=== PATIENT | female | born 1990 | race Caucasian/White ===

== ENCOUNTER 2023-03-10 20:00 | Emergency (ER) | payer OTHER ==
[2023-03-10 20:09] VITALS: BMI 23.3
[2023-03-10] MEDS ORDERED: SODIUM CHLORIDE 0.9% 500 ML INFUS.BAG IV ONE (20:18)
[2023-03-10] MEDS ORDERED: ONDANSETRON 4 MG/2 ML VIAL IVPUSH ONE (20:19)
[2023-03-10] MEDS ORDERED: FAMOTIDINE 20 MG/50 ML IVPB 20 MG/50 ML MG IVPB ONE ×2 (20:19→20:45)
[2023-03-10] MEDS ORDERED: ACETAMINOPHEN 1000 MG/100 ML BAG IVPB ONE (20:19)
[2023-03-10] MEDS ORDERED: ACETAMINOPHEN INJECTION 100 ML IVPB ONE (20:45)
[2023-03-10] MEDS ORDERED: ONDANSETRON 4 MG/2 ML VIAL ONE (20:45)
[2023-03-10 20:57] LABS: BASO % 0.2 % (0-2.0); EOS % 0.6 % (0-4.5); HEMATOCRIT 39.7 % (32.4-45.2); HEMOGLOBIN 13.7 GM/dL (10.7-15.3); LYMPH % 11.6 % (8-40); MCH 29.5 pg (25.7-33.7); MCHC 34.5 g/dl (32.0-36.0); MEAN CELL VOLUME 85.6 fl (80-96); MEAN PLT VOLUME 8.4 fl (7.5-11.1); MONO % 5.7 % (3.8-10.2); NEUT % 81.9 % (42.8-82.8); PLATELET COUNT 225 10^3/uL (134-434); RBC 4.64 M/mm3 (3.60-5.2); RDW 13.2 % (11.6-15.6)
[2023-03-10 21:10] LABS: POTASSIUM 3.2 mmol/L (3.5-5.1)
[2023-03-10 21:13] LABS: CALCIUM 8.6 mg/dL (8.5-10.1)
[2023-03-10 21:14] LABS: ALBUMIN 3.7 g/dl (3.4-5.0); BLOOD UREA NITROGEN 7.8 mg/dL (7-18)
[2023-03-10 21:17] LABS: CREATININE 0.5 mg/dL (0.55-1.3)
[2023-03-10 21:18] LABS: BILIRUBIN,TOTAL 0.8 mg/dL (0.2-1); TOT PROT 7.3 g/dl (6.4-8.2)
[2023-03-10] MEDS ORDERED: LOPERAMIDE HCL 1 MG/5 ML UNIT DOSE CUP PO ONE (21:19)
[2023-03-10] MEDS ORDERED: POTASSIUM CHLORIDE ORAL LIQUID 20 MEQ/15 ML PO ONE (21:19)
[2023-03-10] MEDS ORDERED: LOPERAMIDE HCL 2 MG CAPSULE ONE (21:31)
[2023-03-10] MEDS ORDERED: LOPERAMIDE HCL 2 MG CAPSULE PO ONE (21:31)
[2023-03-10] MEDS ORDERED: POTASSIUM CHLORIDE ORAL LIQUID 20 MEQ/15 ML ONE (21:32)
[2023-03-10 21:53] VITALS: BP 114/70; PULSE 70; RESP 16; TEMP 97.6
== END 2023-03-10 22:21 | disposition home or self-care (01) ==
LOC: JER 20:00
PROC: 3E033GC Introduction of Other Therapeutic Substance into Peripheral Vein, Percutaneous Approach (ICD-10-PCS; principal; 2023-03-10)
PROC: 3E033NZ Introduction of Analgesics, Hypnotics, Sedatives into Peripheral Vein, Percutaneous Approach (ICD-10-PCS; 2023-03-10)
PROC: 3E033GC Introduction of Other Therapeutic Substance into Peripheral Vein, Percutaneous Approach (ICD-10-PCS; 2023-03-10)
DX: R19.7 Diarrhea, unspecified (principal); R10.84 Generalized abdominal pain; R10.30 Lower abdominal pain, unspecified; R11.2 Nausea with vomiting, unspecified; Z20.822 Contact with and (suspected) exposure to COVID-19
CPT/HCPCS: 0241U-QW; 36415; 80053; 83690; 84703; 85025; 99284-25

== ENCOUNTER 2023-03-20 21:49 | Emergency (ER) | payer OTHER ==
[2023-03-20 21:59] VITALS: BP 109/70; PULSE 78; RESP 18; TEMP 97.8; BMI 22.4
[2023-03-20] MEDS ORDERED: IBUPROFEN 600 MG TABLET (FP) PO ONE ×2 (23:00→23:12)
== END 2023-03-20 23:39 | disposition home or self-care (01) ==
LOC: JERFT 21:49 → JER 21:49
DX: R50.9 Fever, unspecified (principal); R05.9 Cough, unspecified; J06.9 Acute upper respiratory infection, unspecified; Z20.822 Contact with and (suspected) exposure to COVID-19
CPT/HCPCS: 0241U-QW; 71046-TC-FY; 84703; 99284-25